=== PATIENT | male | born 1995 | race Caucasian/White ===

== ENCOUNTER 2019-05-16 09:40 | Emergency (ER) | payer OTHER, SELFPAY ==
[2019-05-16 09:41] VITALS: BP 166/109; PULSE 95; RESP 18; TEMP 36.6; O2SAT 97; BMI 37.2
--- NOTE | 2019-05-16 09:56 | EKG12_ITS ---
Test Reason : CP Blood Pressure : / mmHG Vent. Rate : 092 BPM Atrial Rate : 092 BPM P-R Int : 150 ms QRS Dur : 088 ms QT Int : 340 ms P-R-T Axes : 049 032 028 degrees QTc Int : 420 ms Normal sinus rhythm Normal ECG Confirmed by BLAKE LUI ([id number]), book editor YOCASTA JULIAN ([id number]) on 05/17/2019 9:49:45 AM Referred By: DH/TL Confirmed By:BLAKE LUI
--- NOTE | 2019-05-16 10:01 | ED.VIS.GEN ---
History of Present Illness Chief Complaint: Chest Pain Informant: Patient Onset: Days - 2 Narrative: 2-day history of right-sided chest pain while driving home from work. States occasional cough. No dyspnea. Also reports pain rating down to his scapula and his right deltoid. Denies any neck injuries or pain. 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 No weakness in the extremities. Denies tobacco history. No family history of cardiac disease at young age or any sudden . Denies history of hypertension, diabetes, hypercholesterolemia. Denies any's recent surgeries or immobilizations, no history of PE or DVT. Reports he was on a road trip to [place] the end of February of 900 miles, however denies any dyspnea or any exertional dyspnea. No leg swelling or cramping. Prior similar symptoms: No Past Medical History - Allergies and Home Meds Allergies/Adverse Reactions: Allergies No Known Allergies Allergy (Verified 05/16/19 09:40) Primary Care Physician: Care Physician,No Primary [Primary Care Provider] - Smoking Status: Former smoker Review of Systems General: Denies: Chills, Fever, Sweats Eyes: Denies: Visual changes - bilaterally, Diplopia ENT: Denies: Rhinorrhea, Sore throat Cardiovascular: Denies: Chest pain, Palpitations Respiratory: Denies: Dyspnea, Cough, Dyspnea on exertion Gastrointestinal: Denies: Abdominal pain, Nausea, Vomiting, Diarrhea, Melena, Hematochezia Genitourinary: Denies: Dysuria, Hematuria, Frequency Musculoskeletal: Denies: Back pain, Extremity Pain Skin: Denies: Rash, Wounds Neurological: Denies: Headache, Weakness, Numbness Physical Exam Vital Signs/Narrative: Vital Signs Temp Pulse Resp BP Pulse Ox 05/16/19 09:41 98 F 95 18 166/109 H 97 Inital Vital Signs reviewed: Yes General: Well nourished, Well developed, No Acute Distress Head: Normocephalic, Atraumatic Eyes: Perrl, EOMI ENT: Moist mucous membranes, No rhinorrhea Neck: Supple, - - Paracervical tenderness at C3 rotated to the right side bent right, no midline tenderness. Spurling's test was negative bilaterally. Cardiovascular: Regular rate, Regular rhythm, No murmurs Respiratory: No distress, CTA bilaterally, Chest nontender, - - No rash of the chest, no reproducible tenderness with palpation. No crepitus. Abdomen: Soft, Nontender, Nondistended, Normal bowel sounds Back: Nontender, Normal Inspection Extremities: Nontender, No edema Skin: Normal color, No rash Neurological: Alert, Oriented x3, Cranial nerves II-XII grossly intact, Normal Strength, Normal Sensation Psychological: Normal affect, Normal Mood Diagnostic/Tx/Re-eval Chest x-ray: No acute process reviewed by myself and per read by radiology Cervical neck x-ray: No acute process - EKG Initial EKG Interpretation: Sinus Rhythm - Sinus rhythm rate of 92, no ST changes. Isolated T wave inversion in leads III. - Medical Decision Making Patient right-sided chest pain EKG nonspecific T wave inversion in leads III. PERC criteria negative. Chest x-ray negative. Exam with neck somatic dysfunction. However reports radicular symptoms therefore x-rays obtained shows no acute process. I performed osteopathic manipulation of the neck bedside with improvement of symptoms are still tension right paraspinal however was improved he reports radicular symptoms to the scapula also improved. He will continue Motrin and monitor symptoms. He will follow-up as an outpatient. All questions were answered. ED Disposition - Plan for ED Patient: Disposition: Home or Assisted Living Diagnosis: Atypical chest pain, Somatic dysfunction of spine, cervical Instructions: CHEST PAIN, NonCardiac, Neck Sprain/Strain Referrals: Care Physician,No Primary [Primary Care Provider] - Kenia Bergman MD [COURTESY STAFF PHYSICIAN] - 1 Week
--- NOTE | 2019-05-16 10:04 | RAD_ITS ---
STUDY: X-RAY - CERVICAL SPINE REASON FOR EXAM: Male, 23 years old. Neck pain. TECHNIQUE: 3 view(s) of the cervical spine were obtained. COMPARISON: None. FINDINGS: No acute fracture, dislocation or osseous destruction. Cervical straightening. Slight reversal of normal cervical lordosis. No significant scoliosis. Atlantoaxial articulation intact. Lateral masses well aligned. Minimal osteophytic ridging at C6-7. Minimal intervertebral disc height loss. No spondylolisthesis. No significant soft tissue swelling. Normal lung apices. RAD/Cerv Spine 2 or 3 Views IMPRESSION: Cervical spine intact Cervical straightening Electronically Signed: Ethan Juárez DO at 10:28 EDT Tel , Service support ,
--- NOTE | 2019-05-16 10:04 | RAD_ITS ---
STUDY: X-RAY CHEST REASON FOR EXAM: Male, 23 years old. Cough. Chest pain. TECHNIQUE: Single AP portable view of the chest. COMPARISON: None. FINDINGS: Cardiac silhouette unremarkable. Pulmonary vascularity unremarkable. Aorta unremarkable. No focal patchy airspace opacities. No pleural effusions. Upper abdomen unremarkable. Osseous structures intact. No pneumothorax. Mild endplate spondylosis. RAD/Chest PA and Lateral IMPRESSION: No acute cardiopulmonary findings Electronically Signed: Ethan Juárez DO at 10:30 EDT Tel , Service support ,
[2019-05-16 10:40] VITALS: BP 135/98; PULSE 87; RESP 18; O2SAT 95
[2019-05-16 10:55] VITALS: BP 134/88; PULSE 82; RESP 15; O2SAT 95
[2019-05-16 12:08] VITALS: BP 108/74; PULSE 62; RESP 15; O2SAT 99
== END 2019-05-16 12:09 | disposition home or self-care (01) ==
PROVIDERS: Emergency Provider Emergency Medicine
DX: R07.89 Other chest pain (principal); M99.01 Segmental and somatic dysfunction of cervical region; R05 Cough; Z87.891 Personal history of nicotine dependence
CPT/HCPCS: 71046; 72040; 93005; 99282